=== PATIENT | female | born 1970 | race African-American/Black ===

== ENCOUNTER 2024-06-29 17:00 | Emergency (ER) | payer OTHER, SELFPAY ==
--- NOTE | ~2024-06-29 | XR_ITS ---
EXAMINATION: XR finger 3rd LT min 2V DATE: 06/29/2024 17:31 INDICATION: Left hand third digit injury and pain. TECHNIQUE: 4 views of left hand third digit were obtained. COMPARISON: None. FINDINGS: Alignment is normal. No fracture. There is mild osteoarthritis of third metacarpophalangeal joint and proximal and distal interphalangeal joints. IMPRESSION: 1. Mild polyarticular osteoarthritis. Reviewed, dictated and finalized at location A.
[2024-06-29 17:19] VITALS: BP 124/71; PULSE 81; RESP 16; TEMP 37.2; O2SAT 100
--- NOTE | 2024-06-29 17:33 | ED.UPPEXIN ---
HPI - Extremity Injury (Upper) General Chief Complaint: Extremity Injury, Upper Stated Complaint: left middle finger injured Time Seen by Provider: 06/29/24 17:02 Source: patient, RN notes reviewed and old records reviewed Mode of arrival: ambulatory Limitations: no limitations History of Present Illness HPI narrative: 53-year-old female new injury reports pain at the D IP for about a week when she was playing with her dog and the dog bent her finger back. Noticed yesterday that she had a discoloration to the middle finger at the distal aspect. Areas fluctuance to the distal aspect of the finger. Mild cellulitic changes Treatments prior to arrival: splint Related Data Allergies Allergy/AdvReac Type Severity Reaction Status Date / Time No Known Allergies Allergy Verified 06/29/24 17:44 Review of Systems Review of Systems: All systems reviewed & are unremarkable except as noted in HPI and below Constitutional: Constitutional: Reports no additional constitutional complaints Eyes: Eyes: Reports no additional eye complaints ENT: Reports system reviewed and no additional complaints, except as documented Cardiovascular: Cardiovascular: Reports no additional cardiovascular complaints, Denies chest pain and Denies dyspnea Respiratory: Respiratory: Reports no additional respiratory complaints, Denies chest congestion, Denies cough and Denies dyspnea Gastrointestinal: Gastrointestinal: Reports no additional gastrointestinal complaints, Denies abdominal pain, Denies nausea and Denies vomiting Musculoskeletal: Musculoskeletal: Reports as per HPI Integumentary/Breasts: Skin/Breast: Reports as per HPI Neurologic: Reports system reviewed and no additional complaints, except as documented Psychiatric: Psychiatric: Reports no additional psychiatric complaints Allergic/Immunologic: Allergic/Immunologic: Reports no additional allergic/immunologic complaints PMFSH Comments At the time of my signature, I reviewed and agree with the nursing past medical, surgical, social, and family history. There is no relevant family history pertinent to the patient complaint. Exam Const: General: cooperative, healthy appearing, comfortable, no acute distress, well developed, alert and well nourished Nutritional Appearance: well nourished Orientation/consciousness: patient oriented x3 Limitations: no limitations HENMT: Head: normal to inspection Ears: hearing grossly normal bilaterally and external ears normal Face/Nose/Sinus: Normal external nose present, normal facial exam and face symmetric Face and sinus: normal facial exam and face symmetric Eyes: General: appearance normal, both eyes and all related structures Alignment and Position: alignment normal Periorbital: periorbital findings normal Neck: Neck: normal visual inspection, full ROM, no lymphadenopathy and no meningeal signs Chest: Chest palpation & inspection: normal inspection of the chest Resp: Effort & Inspection: normal respiratory effort and able to speak in complete sentences Cardio: Rate: regular rate Skin: General skin exam: normal color and no rashes or lesions noted Lesions: no lesions Rashes: no rashes Trauma: no lacerations or abrasions Other: Paronychia noted to the distal aspect 3rd finger. Neuro: General: patient oriented x3, gait normal, tone normal, moves all extremities and no meningeal signs Cognition (Neuro): normal cognition Speech: normal speech Gait exam (Neuro): Normal gait present Extrem: General: normal to inspection, full ROM, capillary refill normal and normal gait Left upper extremity: hand normal capillary refill, tenderness of the 3rd digit at the distal phalanx and swelling of the 3rd digit at the distal phalanx; no abrasions and no ecchymosis Psych: Appearance: grossly normal and well kempt Mental Status: mental status grossly normal Speech and movement: Normal speech and movement present and Clear speech present Affect: normal affect Attitude: cooperative Course Course Level of Care: Express Care Visit Vital Signs Vital signs: Vital Signs Temperature 99 F 06/29/24 17:19 Pulse Rate 81 06/29/24 17:19 Respiratory Rate 16 06/29/24 17:19 Blood Pressure 124/71 06/29/24 17:19 Pulse Oximetry 100 06/29/24 17:19 Oxygen Delivery Room Air 06/29/24 17:19 Temperature 99 F 06/29/24 17:19 Pulse Rate 81 06/29/24 17:19 Respiratory Rate 16 06/29/24 17:19 Blood Pressure 124/71 06/29/24 17:19 Pulse Oximetry 100 06/29/24 17:19 Oxygen Delivery Room Air 06/29/24 17:19 Reviewed Procedures Abscess I/D hand: Date of Incision: 06/29/24 Time of Incision: 18:00 Side (if applicable): left Local Anesthetic: lidocaine 1% Amount of anesthesia used (mL): 3 Technique: incised with #15 blade Amount of fluid expressed (mL): 5 Packing used?: none Abcess I&D Additional Comments: Procedure explained to patient. Verbal consent obtained. Area cleaned with Betadine, digital block performed, anesthesia achieved. Open paronychia with 15 blade, purulent drainage, odorous noted. Patient tolerated procedure well MDM - Extremity Injury (Upper) MDM Narrative Medical decision making narrative: Patient sitting comfortably in exam room. Nontoxic, vitals stable. Patient in no acute distress Patient presents with an injury to the finger 1 week ago, paronychia developed a couple of days ago X-ray negative for fracture exam consistent with sprain Paronychia I and D. Patient tolerated procedure well Patient appropriate for outpatient treatment and follow-up Discharge instructions reviewed with patient, as well as provided in writing per nursing staff. The instructions also include specific and strict return/GO TO THE ER as well as f/u information. All questions have been answered, and the patient deny any further questions with discharge and discharge plan. Some parts of this dictation were generated by voice recognition software and may contain typographical and/or grammatical inaccuracies. Differential Diagnosis Differential diagnosis: Likely sprain and strain of wrist, finger sprain and other (Paronychia) Imaging Data Radiologist's impression: EXAMINATION: XR finger 3rd LT min 2V DATE: 06/29/2024 17:31 INDICATION: Left hand third digit injury and pain. TECHNIQUE: 4 views of left hand third digit were obtained. COMPARISON: None. FINDINGS: Alignment is normal. No fracture. There is mild osteoarthritis of third metacarpophalangeal joint and proximal and distal interphalangeal joints. IMPRESSION: 1. Mild polyarticular osteoarthritis. Critical Care Time Critical Care Time Critical Care Time: No Discharge Plan Discharge Clinical Impression: Finger sprain, Paronychia Patient Disposition: Home, Self-Care Condition: Stable Instructions: Paronychia (ED), Finger Sprain (ED) Additional Instructions: Soak the infected area of the finger 2 to 3 times a day in warm soapy water and Epson salt. Take antibiotic as prescribed Take Motrin alternating with Tylenol as needed for pain Follow-up with primary care provider For new or worsening symptoms go directly to the emergency room Patient Language: [place] Prescriptions: New sulfamethoxazole-trimethoprim [Bactrim DS] 800-160 mg tablet 1 tablet PO Q12H Qty: 14 0RF Follow-up/Referrals: UNKNOWN,DOCTOR [Primary Care Provider] - Stand Alone Forms: Work/School Release IP Time of Disposition: 18:09
[2024-06-29] MEDS: LIDOCAINE HCL 1% LOCAL INJ 2 ML AMPUL 4 ML INFILTRATE (17:56)
== END 2024-06-29 18:18 | disposition home or self-care (01) ==
PROVIDERS: Emergency Provider Nurse Practitioner
DX: S63.613A Unspecified sprain of left middle finger, initial encounter (principal); W54.8XXA Other contact with dog, initial encounter; L03.012 Cellulitis of left finger
CPT/HCPCS: 10060; 73140; 87070; 87075; 87076; 87186; 87205; 99203; G0463; J2003